=== PATIENT | female | born 1965 | race Two or more races ===

== ENCOUNTER 2022-06-06 03:33 | Emergency (ER) | payer BC ==
[~2022-06-06] VITALS: Ht 162.6 cm; Wt 61.2 kg
[2022-06-06] MEDS ORDERED: VALACYCLOVIR500 MG PO (03:58)
[2022-06-06] MEDS ORDERED: TOPIRAMATE25 MG PO (03:58)
[2022-06-06] MEDS ORDERED: LEVOTHYROXINE25 MCG PO (03:58)
[2022-06-06] MEDS ORDERED: ESTRADIOL1 EAC2 TD (03:59)
[2022-06-06] MEDS ORDERED: YUVAFEM10 MCG VAG (03:59)
[2022-06-06] MEDS ORDERED: MELOXICAM15 MG PO (03:59)
[2022-06-06] MEDS ORDERED: TRAZODONE HCL150 MG PO (03:59)
[2022-06-06] MEDS ORDERED: TRELEGY ELLIPT1 EACH IH (04:00)
[2022-06-06] MEDS ORDERED: GABAPENTIN100 MG (04:00)
[2022-06-06] MEDS ORDERED: EPHEDRINE IV (04:00)
[2022-06-06] MEDS ORDERED: XIIDRA1 EACH OP (04:01)
== END 2022-06-06 06:04 | disposition home or self-care (01) ==
LOC: ER 03:33
DX: M25.473 Effusion, unspecified ankle (principal)